=== PATIENT | male | born 1965 | race Two or more races ===

== ENCOUNTER 2023-06-16 09:05 | Emergency (ER) | payer SELFPAY ==
[~2023-06-16] VITALS: Ht 177.8 cm; Wt 75.0 kg
[2023-06-16 09:10] VITALS: O2SAT 100
[2023-06-16] MEDS ORDERED: KETOROLAC 30MG/ML VIAL IV STA (09:13)
[2023-06-16 10:34] VITALS: BP 165/87; PULSE 87; RESP 25; TEMP 98.3
== END 2023-06-16 11:02 | disposition left against medical advice (07) ==
LOC: ER 09:05
DX: R42 Dizziness and giddiness (principal); R53.1 Weakness; R10.9 Unspecified abdominal pain; I10 Essential (primary) hypertension
CPT/HCPCS: 70450; 74176; 93005; 99284; Z7610 ×3